=== PATIENT | female | born 2000 | race Hispanic/Latino ===

== ENCOUNTER 2019-03-16 15:39 | Emergency (ER) | payer BC ==
[~2019-03-16] VITALS: Ht 152.4 cm; Wt 68.9 kg
--- OUTSIDE RECORDS SUMMARY | 2019-03-16 15:41 | XMS REPORT ---
Author [facility] Address Unknown Phone Unavailable Care Team Providers Care Service Line Layer Name Role Phone SHIVAM ARREAGA Unavailable Unavailable Payers Payer Name Policy Type Policy Number Effective Date Expiration Date Problems This patient has no known problems. Allergies, Adverse Reactions, Alerts Allergy Name Allergy Type Status Severity Reaction(s) Onset Date Inactive Date Treating Clinician Comments No Known Allergies DA Active U 2018-12-26 00:00:00 No Known Allergies DA Active U 2018-09-22 00:00:00 Medications This patient has no known medications. Results Test Description Test Time Test Comments Text Results Atomic Results Result Comments CBC W/AUTO DIFF 2018-12-27 07:41:00 WHITE BLOOD CELL (test code=WBC) 16.34 x10 3/uL 4.5-11.0 RED BLOOD CELL (test code=RBC) 3.18 x10 6/uL 3.54-5.02 HEMOGLOBIN (test code=HGB) 8.2 g/dL 11.0-15.0 HEMATOCRIT (test code=HCT) 26.2 % 33.0-45.0 MEAN CELL VOLUME (test code=MCV) 82.4 fL 81.0-99.0 MEAN CELL HGB (test code=MCH) 25.8 pg 27.0-33.0 MEAN CELL HGB CONCETRATION (test code=MCHC) 31.3 g/dL 33.0-37.0 RED CELL DISTRIBUTION WIDTH CV (test code=RDW) 14.9 % 11.5-14.5 RED CELL DISTRIBUTION WIDTH SD (test code=RDW-SD) 44.6 fL 37.0-54.0 PLATELET COUNT (test code=PLT) 133 x10 3/uL 150-400 IMMATURE PLATELET FRACTION (test code=IPF) 11.7 % 0.9-11.2 MEAN PLATELET VOLUME (test code=MPV) 13.4 fL 7.0-9.0 NEUTROPHIL % (test code=NT%) 81.5 % 56.0-77.0 IMMATURE GRANULOCYTE % (test code=IG%) 0.7 % 0.0-2.0 LYMPHOCYTE % (test code=LY%) 12.3 % 14.0-32.0 MONOCYTE % (test code=MO%) 4.8 % 4.8-9.0 EOSINOPHIL % (test code=EO%) 0.5 % 0.3-3.7 BASOPHIL % (test code=BA%) 0.2 % 0.0-2.0 NUCLEATED RBC % (test code=NRBC%) 0.0 % 0-0 NEUTROPHIL # (test code=NT#) 13.32 x10 3/uL 2.0-7.6 IMMATURE GRANULOCYTE # (test code=IG#) 0.11 x10 3/uL 0.00-0.03 LYMPHOCYTE # (test code=LY#) 2.01 x10 3/uL 1.0-3.8 MONOCYTE # (test code=MO#) 0.79 x10 3/uL 0.1-0.8 EOSINOPHIL # (test code=EO#) 0.08 x10 3/uL 0.0-0.2 BASOPHIL # (test code=BA#) 0.03 x10 3/uL 0.0-0.2 NUCLEATED RBC # (test code=NRBC#) 0.00 x10 3/uL 0.0-0.1 MANUAL DIFF REQUIRED (test code=MDIFF) NO CORD VENOUS BLOOD [id number] 14:48:00* Test Item Value Reference Range Comments CORD VENOUS PH (test code=PHCV) 7.28 7.25-7.45 CORD VENOUS PCO2 (test code=PCO2CV) 41 mmHg 27-49 CORD VENOUS PO2 (test code=PO2CV) 25 mmHg 17-41 CORD VENOUS HCO3 (test code=HCO3CV) 19.4 MMOL/L 12-28 CORD VENOUS BASE EXCESS (test code=BEXCV) -7.0 mmol/L -8.0-0.00 CORD VENOUS 02 SAT (test code=O2SCV) 37 % CORD ARTERIAL BLOOD [id number] 14:47:00* Test Item Value Reference Range Comments CORD BLOOD PH (test code=PH/C) 7.28 7.18-7.38 CORD BLOOD PCO2 (test code=PCO2/C) 44 mmHg 32-66 CORD BLOOD PO2 (test code=PO2/C) 25 mmHg 6-30 CORD BLOOD HCO3 (test code=HCO3/C) 20 mmol/L 17-27 BASE EXCESS CORD (test code=NORMA/C) -7.0 mmol/L -8.0-0.0 O2 SATURATION (test code=O2S/C) 36 % 72-77 RAPID PLASMA [id number] 10:05:00* Test Item Value Reference Range Comments RAPID PLASMA REAGIN (test code=RPR) NONREACTIVE NONREACTIVE AG HEPATITIS B [id number] 10:05:00* Test Item Value Reference Range Comments AG HEPATITIS B SURFACE (test code=HBSAG) NON REACTIVE INDEX NonReactive AB HIV 1 10:05:00* Test Item Value Reference Range Comments AB HIV 1 2 (test code=[id number]) NONREACTIVE INDEX NONREACTIVE RAPID PLASMA [id number] 04:51:00* Test Item Value Reference Range Comments RAPID PLASMA REAGIN (test code=RPR) NONREACTIVE AG HEPATITIS B [id number] 04:51:00* Test Item Value Reference Range Comments AG HEPATITIS B SURFACE (test code=HBSAG) NON REACTIVE INDEX NonReactive AB HIV 1 04:51:00* Test Item Value Reference Range Comments AB HIV 1 2 (test code=[id number]) NONREACTIVE INDEX NONREACTIVE RAPID PLASMA [id number] 03:06:00* Test Item Value Reference Range Comments RAPID PLASMA REAGIN (test code=RPR) NONREACTIVE AG HEPATITIS B [id number] 03:06:00* Test Item Value Reference Range Comments AG HEPATITIS B SURFACE (test code=HBSAG) NON REACTIVE INDEX NonReactive AB HIV 1 03:06:00* Test Item Value Reference Range Comments AB HIV 1 2 (test code=[id number]) INDEX NONREACTIVE CBC W/AUTO [id number] 02:04:00* Test Item Value Reference Range Comments WHITE BLOOD CELL (test code=WBC) 15.62 x10 3/uL 4.5-11.0 RED BLOOD CELL (test code=RBC) 3.98 x10 6/uL 3.54-5.02 HEMOGLOBIN (test code=HGB) 10.1 g/dL 11.0-15.0 HEMATOCRIT (test code=HCT) 32.1 % 33.0-45.0 MEAN CELL VOLUME (test code=MCV) 80.7 fL 81.0-99.0 MEAN CELL HGB (test code=MCH) 25.4 pg 27.0-33.0 MEAN CELL HGB CONCETRATION (test code=MCHC) 31.5 g/dL 33.0-37.0 RED CELL DISTRIBUTION WIDTH CV (test code=RDW) 14.5 % 11.5-14.5 RED CELL DISTRIBUTION WIDTH SD (test code=RDW-SD) 42.1 fL 37.0-54.0 PLATELET COUNT (test code=PLT) 150 x10 3/uL 150-400 IMMATURE PLATELET FRACTION (test code=IPF) 12.8 % 0.9-11.2 MEAN PLATELET VOLUME (test code=MPV) 13.5 fL 7.0-9.0 NEUTROPHIL % (test code=NT%) 80.0 % 56.0-77.0 IMMATURE GRANULOCYTE % (test code=IG%) 0.9 % 0.0-2.0 LYMPHOCYTE % (test code=LY%) 12.3 % 14.0-32.0 MONOCYTE % (test code=MO%) 6.0 % 4.8-9.0 EOSINOPHIL % (test code=EO%) 0.6 % 0.3-3.7 BASOPHIL % (test code=BA%) 0.2 % 0.0-2.0 NUCLEATED RBC % (test code=NRBC%) 0.0 % 0-0 NEUTROPHIL # (test code=NT#) 12.50 x10 3/uL 2.0-7.6 IMMATURE GRANULOCYTE # (test code=IG#) 0.14 x10 3/uL 0.00-0.03 LYMPHOCYTE # (test code=LY#) 1.92 x10 3/uL 1.0-3.8 MONOCYTE # (test code=MO#) 0.94 x10 3/uL 0.1-0.8 EOSINOPHIL # (test code=EO#) 0.09 x10 3/uL 0.0-0.2 BASOPHIL # (test code=BA#) 0.03 x10 3/uL 0.0-0.2 NUCLEATED RBC # (test code=NRBC#) 0.00 x10 3/uL 0.0-0.1 MANUAL DIFF REQUIRED (test code=MDIFF) NO URINALYSIS [id number] 18:05:00* Test Item Value Reference Range Comments UA COLOR (test code=COLU) STRAW YEL/STRAW UA APPEARANCE (test code=APPU) CLEAR CLEAR UA GLUCOSE DIPSTICK (test code=DGLUU) NEGATIVE NEGATIVE UA BILIRUBIN DIPSTICK (test code=BILU) NEGATIVE NEGATIVE UA KETONE DIPSTICK (test code=KETU) NEGATIVE NEGATIVE UA SPECIFIC GRAVITY (test code=SGU) 1.003 1.005-1.030 UA BLOOD DIPSTICK (test code=FÁTIMA) NEGATIVE NEGATIVE UA PH DIPSTICK (test code=PRINCESS) 7.0 5.0-7.0 UA PROTEIN DIPSTICK (test code=PROU) NEGATIVE NEGATIVE UA UROBILINIOGEN DIPSTICK (test code=URO) 0.2 mg/dL 0.2-1.0 UA NITRITE DIPSTICK (test code=TAMICA) NEGATIVE NEGATIVE UA LEUKOCYTE ESTERASE DIPSTICK (test code=LEUU) NEGATIVE NEGATIVE UA RBC (test code=RBCU) NONE SEEN RBC/HPF 0-3 UA WBC NO REFLEX (test code=WBCUCL) 0-3 WBC/HPF 0-3 UA BACTERIA (test code=BACU) TRACE /HPF NONE SEEN UA SQUAMOUS CELLS (test code=SQU) 0-5 /HPF NONE SEEN US PELVIS COMPLETE NON OB [place] [id number] Patient Name: BERTHA IBRAHIM MR #: [id number] : 2000 Age/Sex: 16/F Req #: [id number] Adm Physician: Ordered by: WHITLEY RIOS, SHIVAM Bennett MD Report #: [id number] Location: US Room/Bed: Procedure: [id number] US/US PELVIS COMPLETE N ON OB Exam Date: 11/07/16 Exam Time: 1616 REPO RT STATUS: Signed PROCEDURE: PELVIC ULTRASOUND COMPARISON: None. HENRIK CATIONS: Pelvic Pain TECHNIQUE: Grayscale transverse and sagittal transabdom inal and transvaginal images were obtained of the pelvis. LMP: 7 FINDINGS: UTERUS: 6.7 x 3.5 x 4.3 cm. Uniform echotexture. No masses. ENDOMETRIUM: 0.8 cm. Uniform thickness. RIGHT OVARY: 2.5 x 1.3 x 1.9 cm. Normal. LEFT OVARY: 2.4 x 1.6 x 2.1 cm. Normal. There is no free fluid within the pelvis. No adnexal masses. CONCLUSION: Normal transabdominal pelvic ultrasound. Dictated by: Tasha Burr M.D. on 11/07/2016 at 16:53 Electronically approved by: Tasha Burr M.D. on at 16:53 Dictated By: TASHA BURR MD [id number] Transcribed By: IVAN on 11/07/161652 CO PY TO: SHIVAM ARREAGA
[2019-03-16 16:04] LABS: BILIRUBIN,URINE NEGATIVE (NEGATIVE); CLARITY,URINE SL CLOUDY (CLEAR); COLOR,URINE YELLOW (YELLOW); KETONES,URINE NEGATIVE (NEGATIVE); LEUKOCYTE ESTERASE ,URINE TRACE (NEGATIVE); NITRITE,URINE NEGATIVE (NEGATIVE); PREGNANCY TEST, URINE NEGATIVE (NEGATIVE); PROTEIN,URINE DIPSTICK NEGATIVE (NEGATIVE); URINE UROBILINOGEN 0.2 mg/dL (0.2 - 1)
[2019-03-16 16:22] LABS: BACTERIA,URINE MODERATE /HPF; EPITHELIAL CELLS,URINE MANY /LPF; WBC,URINE (MAN) 0-5 /HPF (0-5)
[2019-03-16 16:23] LABS: AMORPHOUS SEDIMENT,URINE MODERATE (FEW)
--- NOTE | 2019-03-16 16:36 | Diagnostic Imaging Report ---
Abdomen, 2 views. History: Lower abdominal pain. Findings: Air is scattered throughout nondilated small and large bowel. There are no air-fluid levels. There is no evidence of free air. Stool is noted throughout the descending and ascending colon. There are no masses or abnormal calcifications. The osseous structures are intact. IMPRESSION: Nonobstructive bowel gas pattern. Moderate retained stool. Signed by: Michoacano Recio on 03/16/2019 4:33 PM
== END 2019-03-16 17:31 | disposition home or self-care (01) ==
LOC: ER 15:39
DX: R10.30 Lower abdominal pain, unspecified (principal); K59.00 Constipation, unspecified
CPT/HCPCS: 74019; 81001; 81025; 87086; 99283